=== PATIENT | male | born 1960 | race Caucasian/White ===

== ENCOUNTER 2018-09-06 11:03 | Inpatient (IN) | payer MEDICAID ==
[~2018-09-06] VITALS: Ht 162.6 cm; Wt 51.0 kg
[2018-09-06 11:31] LABS: Urine Bacteria NONE SEEN /hpf (None Seen); Urine Blood Negative /uL (Negative); Urine WBC 1 /hpf (0 - 3)
[2018-09-06 12:07] LABS: Basophils # (auto) 0 uL; Basophils % (auto) 0.3 % (0.0-2.0); Eosinophils # (auto) 0.1 uL; Eosinophils % (auto) 0.9 % (0.0-7.0); Hematocrit 43.8 % (41.0-53.0); Hemoglobin 14.6 g/dL (13.5-17.5); Lymphocytes % (auto) 6.3 % (10.0-50.0); Mean Corpuscular Hemoglobin 28.3 pg (28.0-32.0); Mean Corpuscular Hgb Conc. 33.4 g/dL (32.0-36.0); Mean Corpuscular Volume 84.5 fL (80.0-100.0); Monocytes # (auto) 0.9 uL; Neutrophils # (auto) 13.3 uL; Neutrophils % (auto) 86.5 % (37.0-80.0); Nucleated Red Blood Cells % 0.1 %; Platelet Count (auto) 206 10^3/uL (140-450); Red Blood Cells 5.18 10^6/uL (4.5-5.90); Red Cell Distribution Width 14.6 % (11.8-14.3); White Blood Cell 15.4 10^3/uL (4.4-10.8)
[2018-09-06] MEDS ORDERED: cefTRIAXone 1GM/50ML D5W 50 ML IV ONE (12:30)
[2018-09-06] MEDS ORDERED: ALBUTEROL SULF 2.5 MG/0.5ML(0.5%) NEB SOLN HHN ONE (12:30)
[2018-09-06] MEDS ORDERED: IPRATROPIUM BROM 0.5 MG/2.5ML INH SOL HHN ONE (12:30)
[2018-09-06] MEDS ORDERED: methylPREDNISolone SOD SUCC 125 MG/2 ML VL IV ONE (12:30)
[2018-09-06 12:31] LABS: Alanine Aminotransferase 22 U/L (16-61); Albumin 3.7 g/dL (3.4-5.0); Anion Gap 6 (5-15); Aspartate Aminotransferase 15 U/L (15-37); Blood Urea Nitrogen 13 mg/dL (7-18); Calcium 8.8 mg/dL (8.5-10.1); Carbon Dioxide 27 mmol/L (21-32); Chloride 102 mmol/L (98-107); Glucose 104 mg/dL (74-106); Sodium 135 mmol/L (136-145)
[2018-09-06 12:36] LABS: Alkaline Phosphatase 104 U/L (45-117); BUN/Creatinine Ratio 14.4; Bilirubin, Total 1.1 mg/dL (0.2-1.0); GFR African American 112 mL/min; GFR Non-African American 92 mL/min; Total Protein 7.8 g/dL (6.4-8.2)
[2018-09-06] MEDS ORDERED: MORPHINE SULFATE 4 MG/ML SYR/VIAL IV PRN ×2 (16:30)
[2018-09-06] MEDS ORDERED: DOCUSATE SOD 100 MG CAP PO PRN (16:30)
[2018-09-06] MEDS ORDERED: ONDANSETRON HCL 4 MG/2 ML VIAL IV PRN (16:30)
[2018-09-06] MEDS ORDERED: AZITHROMYCIN 500MG/ 250ML 250 ML IV ONE (16:30)
[2018-09-06] MEDS ORDERED: NITROGLYCERIN 0.4 MG SL TAB SL PRN (16:30)
[2018-09-06 16:43] VITALS: BP 138/79
[2018-09-06] MEDS: NICOTINE 21MG/24 HR TOPICAL PATCH TD SCH (17:39)
[2018-09-06] MEDS: methylPREDNISolone SOD SUCC 40 MG/ML VL IV SCH (17:42)
[2018-09-06] MEDS: IPRATROPIUM BROM 0.5 MG/2.5ML INH SOL NEB SCH ×2 (18:04→22:26)
[2018-09-06] MEDS: ALBUTEROL SULF 2.5 MG/0.5ML(0.5%) NEB SOLN NEB SCH ×2 (18:05→22:26)
[2018-09-06] MEDS: SODIUM CHLOR 0.9% PF (SALINE LOCK) 10ML VIAL/SYR IV SCH (21:07)
[2018-09-06] MEDS: HYDROcodone-ACET 5/325MG TAB PO PRN (21:15)
[2018-09-06 22:00] VITALS: BP 128/68
[2018-09-06] MEDS: BUDESONIDE (INHALATION) 0.5 MG/2 ML NEB NEB SCH (22:26)
[2018-09-07] MEDS: methylPREDNISolone SOD SUCC 40 MG/ML VL IV SCH ×4 (00:09→17:48)
[2018-09-07] MEDS: IPRATROPIUM BROM 0.5 MG/2.5ML INH SOL NEB SCH ×6 (02:00→22:25)
[2018-09-07] MEDS: ALBUTEROL SULF 2.5 MG/0.5ML(0.5%) NEB SOLN NEB SCH ×6 (02:00→22:25)
[2018-09-07] MEDS: HYDROcodone-ACET 5/325MG TAB PO PRN (03:42)
[2018-09-07 05:00] VITALS: BP 112/73
[2018-09-07] MEDS: SODIUM CHLOR 0.9% PF (SALINE LOCK) 10ML VIAL/SYR IV SCH ×3 (06:13→21:53)
[2018-09-07 06:39] LABS: Basophils # (auto) 0 uL; Basophils % (auto) 0.1 % (0.0-2.0); Eosinophils # (auto) 0 uL; Hematocrit 38.8 % (41.0-53.0); Hemoglobin 13.1 g/dL (13.5-17.5); Lymphocytes # (auto) 0.4 uL; Lymphocytes % (auto) 2.7 % (10.0-50.0); Mean Corpuscular Hemoglobin 28.2 pg (28.0-32.0); Mean Corpuscular Hgb Conc. 33.8 g/dL (32.0-36.0); Mean Corpuscular Volume 83.5 fL (80.0-100.0); Monocytes # (auto) 0.2 uL; Monocytes % (auto) 1.6 % (0.0-12.0); Neutrophils # (auto) 13.1 uL; Neutrophils % (auto) 95.6 % (37.0-80.0); Nucleated Red Blood Cells % 0.2 %; Platelet Count (auto) 186 10^3/uL (140-450); Red Blood Cells 4.64 10^6/uL (4.5-5.90); Red Cell Distribution Width 14.2 % (11.8-14.3); White Blood Cell 13.7 10^3/uL (4.4-10.8)
[2018-09-07 06:56] LABS: Potassium 4.1 mmol/L (3.5-5.1)
[2018-09-07 07:04] LABS: Albumin 3.2 g/dL (3.4-5.0); BUN/Creatinine Ratio 27.4; Bilirubin, Total 0.3 mg/dL (0.2-1.0); Calcium 8.8 mg/dL (8.5-10.1); Total Protein 6.9 g/dL (6.4-8.2)
[2018-09-07 08:55] VITALS: BP 118/73
[2018-09-07] MEDS: cefTRIAXone 1GM/50ML D5W 50 ML IV SCH (09:19)
[2018-09-07] MEDS: NICOTINE 21MG/24 HR TOPICAL PATCH TD SCH (09:19)
[2018-09-07] MEDS: MULTIPLE VITAMIN TAB PO SCH (09:19)
[2018-09-07] MEDS: AZITHROMYCIN 500MG/ 250ML 250 ML IV SCH (09:20)
[2018-09-07] MEDS: BUDESONIDE (INHALATION) 0.5 MG/2 ML NEB NEB SCH ×2 (10:05→18:42)
[2018-09-07] MEDS ORDERED: MORPHINE SULFATE 10 MG/ML INJ 1ML SDV IV PRN ×2 (11:30)
[2018-09-07 12:52] VITALS: BP 141/79
[2018-09-07] MEDS ORDERED: DEXTROSE (50%) 50ML SYRG IV PRN (13:00)
[2018-09-07] MEDS ORDERED: FLUCONAZOLE 200MG/100ML 100 ML IV SCH (14:28)
[2018-09-07] MEDS: FLUCONAZOLE 200MG/100ML 100 ML IV SCH (15:08)
[2018-09-07] MEDS: ACETAMINOPHEN 325 MG TAB PO PRN ×2 (15:16→19:55)
[2018-09-07 16:59] VITALS: BP 132/75
[2018-09-07] MEDS: InsuLIN REG 1unit/0.01ml Soln (100units/ml) SC SCH ×2 (17:00→22:03)
[2018-09-07] MEDS: ACCU-CHEK COMFORT CURVE STRIP VI SCH ×2 (17:47→21:53)
[2018-09-07 22:17] VITALS: BP 148/83
[2018-09-08] MEDS: methylPREDNISolone SOD SUCC 40 MG/ML VL IV SCH ×4 (00:17→21:21)
[2018-09-08] MEDS: IPRATROPIUM BROM 0.5 MG/2.5ML INH SOL NEB SCH ×6 (02:31→22:34)
[2018-09-08] MEDS: ALBUTEROL SULF 2.5 MG/0.5ML(0.5%) NEB SOLN NEB SCH ×6 (02:31→22:34)
[2018-09-08 05:44] LABS: Basophils # (auto) 0 uL; Basophils % (auto) 0.1 % (0.0-2.0); Eosinophils # (auto) 0 uL; Hematocrit 37.6 % (41.0-53.0); Hemoglobin 12.7 g/dL (13.5-17.5); Lymphocytes # (auto) 0.3 uL; Mean Corpuscular Hemoglobin 28.4 pg (28.0-32.0); Mean Corpuscular Hgb Conc. 33.7 g/dL (32.0-36.0); Mean Corpuscular Volume 84.3 fL (80.0-100.0); Monocytes # (auto) 0.3 uL; Neutrophils # (auto) 15.3 uL; Neutrophils % (auto) 95.9 % (37.0-80.0); Platelet Count (auto) 186 10^3/uL (140-450); Red Blood Cells 4.46 10^6/uL (4.5-5.90); Red Cell Distribution Width 14.6 % (11.8-14.3)
[2018-09-08] MEDS: InsuLIN REG 1unit/0.01ml Soln (100units/ml) SC SCH ×4 (06:23→21:23)
[2018-09-08] MEDS: SODIUM CHLOR 0.9% PF (SALINE LOCK) 10ML VIAL/SYR IV SCH ×3 (06:23→21:20)
[2018-09-08] MEDS: ACCU-CHEK COMFORT CURVE STRIP VI SCH ×4 (06:23→21:22)
[2018-09-08] MEDS: FLUCONAZOLE 200MG/100ML 100 ML IV SCH (08:15)
[2018-09-08] MEDS: ACETAMINOPHEN 325 MG TAB PO PRN ×4 (08:19→22:22)
[2018-09-08 08:57] VITALS: BP 145/80
[2018-09-08] MEDS: cefTRIAXone 1GM/50ML D5W 50 ML IV SCH (09:56)
[2018-09-08] MEDS: NICOTINE 21MG/24 HR TOPICAL PATCH TD SCH (09:58)
[2018-09-08] MEDS: MULTIPLE VITAMIN TAB PO SCH (09:58)
[2018-09-08] MEDS: BUDESONIDE (INHALATION) 0.5 MG/2 ML NEB NEB SCH ×2 (10:05→18:23)
[2018-09-08] MEDS: AZITHROMYCIN 500MG/ 250ML 250 ML IV SCH (11:46)
[2018-09-08 12:57] VITALS: BP 135/75
[2018-09-08 17:01] VITALS: BP 142/69
[2018-09-08 21:30] VITALS: BP 141/75
[2018-09-09] MEDS: HYDROcodone-ACET 5/325MG TAB PO PRN (00:08)
[2018-09-09] MEDS: TEMAZEPAM 15 MG CAP PO PRN ×2 (00:09→23:03)
[2018-09-09] MEDS: SODIUM CHLOR 0.9% PF (SALINE LOCK) 10ML VIAL/SYR IV SCH ×3 (00:15→14:40)
[2018-09-09] MEDS: IPRATROPIUM BROM 0.5 MG/2.5ML INH SOL NEB SCH ×6 (02:00→22:23)
[2018-09-09] MEDS: ALBUTEROL SULF 2.5 MG/0.5ML(0.5%) NEB SOLN NEB SCH ×6 (02:00→22:23)
[2018-09-09 05:00] VITALS: BP 131/69
[2018-09-09] MEDS: InsuLIN REG 1unit/0.01ml Soln (100units/ml) SC SCH ×4 (06:01→22:00)
[2018-09-09] MEDS: ACCU-CHEK COMFORT CURVE STRIP VI SCH ×4 (06:02→22:57)
[2018-09-09] MEDS: BUDESONIDE (INHALATION) 0.5 MG/2 ML NEB NEB SCH ×2 (06:17→18:25)
[2018-09-09 07:15] LABS: Basophils # (auto) 0 uL; Eosinophils # (auto) 0 uL; Hematocrit 37.9 % (41.0-53.0); Hemoglobin 12.5 g/dL (13.5-17.5); Lymphocytes # (auto) 0.4 uL; Lymphocytes % (auto) 3.4 % (10.0-50.0); Mean Corpuscular Volume 84.8 fL (80.0-100.0); Monocytes # (auto) 0.2 uL; Monocytes % (auto) 1.4 % (0.0-12.0); Neutrophils # (auto) 10.7 uL; Neutrophils % (auto) 95.2 % (37.0-80.0); Platelet Count (auto) 224 10^3/uL (140-450); Red Blood Cells 4.47 10^6/uL (4.5-5.90); Red Cell Distribution Width 14.8 % (11.8-14.3); White Blood Cell 11.3 10^3/uL (4.4-10.8)
[2018-09-09 07:20] LABS: BUN/Creatinine Ratio 24.1; Calcium 8.8 mg/dL (8.5-10.1); Potassium 4.2 mmol/L (3.5-5.1)
[2018-09-09 09:00] VITALS: BP 139/78
[2018-09-09] MEDS: MULTIPLE VITAMIN TAB PO SCH (09:30)
[2018-09-09] MEDS: methylPREDNISolone SOD SUCC 40 MG/ML VL IV SCH (09:30)
[2018-09-09] MEDS: cefTRIAXone 1GM/50ML D5W 50 ML IV SCH (09:30)
[2018-09-09] MEDS: NICOTINE 21MG/24 HR TOPICAL PATCH TD SCH (09:31)
[2018-09-09] MEDS: FLUCONAZOLE 200MG/100ML 100 ML IV SCH ×2 (10:07→11:12)
[2018-09-09] MEDS: ACETAMINOPHEN 325 MG TAB PO PRN (12:09)
[2018-09-09] MEDS: AZITHROMYCIN 500MG/ 250ML 250 ML IV SCH (12:10)
[2018-09-09 13:00] VITALS: BP 126/77
[2018-09-09] MEDS ORDERED: HYDROcodone-ACET 5/325MG TAB PO PRN (15:30)
[2018-09-09 17:00] VITALS: BP 131/98
[2018-09-09 22:00] VITALS: BP 156/88
[2018-09-10] MEDS: ALBUTEROL SULF 2.5 MG/0.5ML(0.5%) NEB SOLN NEB SCH ×4 (02:07→14:29)
[2018-09-10] MEDS: IPRATROPIUM BROM 0.5 MG/2.5ML INH SOL NEB SCH ×4 (02:07→14:29)
[2018-09-10 05:00] VITALS: BP 124/74
[2018-09-10 06:08] LABS: Basophils # (auto) 0 uL; Basophils % (auto) 0.1 % (0.0-2.0); Eosinophils # (auto) 0 uL; Hematocrit 36.7 % (41.0-53.0); Hemoglobin 12.1 g/dL (13.5-17.5); Lymphocytes # (auto) 0.7 uL; Lymphocytes % (auto) 7.8 % (10.0-50.0); Mean Corpuscular Hgb Conc. 33.1 g/dL (32.0-36.0); Mean Corpuscular Volume 84.7 fL (80.0-100.0); Monocytes # (auto) 0.5 uL; Monocytes % (auto) 5.5 % (0.0-12.0); Neutrophils # (auto) 7.5 uL; Neutrophils % (auto) 86.6 % (37.0-80.0); Nucleated Red Blood Cells % 0.1 %; Platelet Count (auto) 220 10^3/uL (140-450); Red Blood Cells 4.33 10^6/uL (4.5-5.90); Red Cell Distribution Width 14.7 % (11.8-14.3); White Blood Cell 8.7 10^3/uL (4.4-10.8)
[2018-09-10] MEDS: SODIUM CHLOR 0.9% PF (SALINE LOCK) 10ML VIAL/SYR IV SCH (06:38)
[2018-09-10] MEDS: InsuLIN REG 1unit/0.01ml Soln (100units/ml) SC SCH ×2 (06:41→11:30)
[2018-09-10] MEDS: ACCU-CHEK COMFORT CURVE STRIP VI SCH ×2 (06:43→11:47)
[2018-09-10 08:00] VITALS: BP 120/62
[2018-09-10 08:23] VITALS: BP 120/62
[2018-09-10] MEDS: cefTRIAXone 1GM/50ML D5W 50 ML IV SCH (08:46)
[2018-09-10] MEDS: FLUCONAZOLE 200MG/100ML 100 ML IV SCH ×2 (09:45→10:55)
[2018-09-10] MEDS: MULTIPLE VITAMIN TAB PO SCH (09:46)
[2018-09-10] MEDS: NICOTINE 21MG/24 HR TOPICAL PATCH TD SCH (09:49)
[2018-09-10] MEDS ORDERED: methylPREDNISolone SOD SUCC 40 MG/ML VL IV SCH (10:00)
[2018-09-10] MEDS: BUDESONIDE (INHALATION) 0.5 MG/2 ML NEB NEB SCH (10:39)
[2018-09-10] MEDS: AZITHROMYCIN 500MG/ 250ML 250 ML IV SCH (12:23)
[2018-09-10 12:30] VITALS: BP 136/71
[2018-09-10] MEDS ORDERED: FLUC200T35 PO (13:42)
[2018-09-10] MEDS ORDERED: LEVO750T2 PO (13:42)
[2018-09-10] MEDS ORDERED: ALBUAER3 IN (13:42)
[2018-09-10] MEDS ORDERED: BUDE0.253 IN (13:55)
== END 2018-09-10 16:30 | disposition home or self-care (01) | DRG 720 ==
LOC: ER 11:03 → TELE 16:36 → TELE-WESTW 19:02
PROVIDERS: ADMIT Internal Medicine; ATTEND Internal Medicine
DX: A41.9 Sepsis, unspecified organism (principal); J96.00 Acute respiratory failure, unspecified whether with hypoxia or hypercapnia; J44.0 Chronic obstructive pulmonary disease with (acute) lower respiratory infection; E87.1 Hypo-osmolality and hyponatremia; J18.9 Pneumonia, unspecified organism; B38.9 Coccidioidomycosis, unspecified; J45.901 Unspecified asthma with (acute) exacerbation; Z82.49 Family history of ischemic heart disease and other diseases of the circulatory system; J44.1 Chronic obstructive pulmonary disease with (acute) exacerbation; H91.90 Unspecified hearing loss, unspecified ear; I10 Essential (primary) hypertension; R73.9 Hyperglycemia, unspecified; F17.210 Nicotine dependence, cigarettes, uncomplicated; J20.9 Acute bronchitis, unspecified; Z71.6 Tobacco abuse counseling; B19.20 Unspecified viral hepatitis C without hepatic coma
CPT/HCPCS: 36415; 71046; 71250; 80048; 80053; 81001; 82962; 83036; 83605; 83735; 84484; 85025; 85379; 86635; 87040; 87070; 87077; 87186; 87205; 93005; 93306; 94640; 94761; 96365; 96375; G0378; J0696; J1450; J1815